=== PATIENT | male | born 1975 | race Caucasian/White ===

== ENCOUNTER 2019-12-12 08:32 | Observation (INO) | payer OTHER, SELFPAY ==
[2019-12-12] VITALS (9 sets, daily range): BP systolic 118–161; BP diastolic 69–95; PULSE 80–128; RESP 14–18; TEMP 36.3–36.6; O2SAT 93–98; BMI 28.0
--- NOTE | ~2019-12-12 | XR_ITS ---
XR chest 1V portable DATE: 12/12/2019 09:10 INDICATION: Midsternal acute chest pain TECHNIQUE: Portable upright AP chest on 12/12/2019 at 0913 hours COMPARISON: 02/15/2019 PA and lateral chest FINDINGS: Normal heart size. No hilar or mediastinal enlargement. No pulmonary infiltrate or consolid ation, pleural effusion or pulmonary vascular congestion or pneumothorax. IMPRESSION: No active cardiopulmonary disease Reviewed, dictated and finalized at location A.
--- NOTE | ~2019-12-12 | CT_ITS ---
EXAMINATION: CTA chest PE protocol DATE: 12/12/2019 10:28 INDICATION: Midsternal chest pain. Elevated d-dimer. TECHNIQUE: Computed tomography angiography (CTA) of the chest was performed with 100 mL Omnipaque-350 intravenous contrast timed to evaluate the pulmonary arteries. Coronal maximum intensity projection 3D-reconstructions were created by the technologist. Automated exposure control and iterative reconst ruction technique were employed. Exam dose: 445.35 mGy-cm total exam DLP. COMPARISON: 12/12/2019 portable AP chest FINDINGS: There is diagnostic contrast enhancement of the pulmonary arteries and no evidence of pulmo nary embolism. No thoracic aortic aneurysm or dissection. Heart size is within normal range. There are prominent coronary artery calcifications. No pericardial or pleural effusion. There are scattered pulmonary blebs, primarily in the apical areas and evidence of mild emphysema. No pulmonary infiltrate or consolidation or pulmonary mass lesion is evident. Hepatic steatosis. The included portions of the adrenal glands are normal. IMPRESSION: No evidence of pulmonary embolism Mild emphysematous changes Hepatic steatosis Reviewed, dictated and finalized at Location [facility]. Reviewed, dictated and finalized at location A.
--- NOTE | ~2019-12-12 | US_ITS ---
EXAMINATION: US venous doppler [facility] DATE: 12/12/2019 14:13 INDICATION: Chest pain. Elevated d-dimer. TECHNIQUE: Grayscale ultrasound images without and with compression and Doppler ultrasound images of the bilateral lower extremity veins were obtained. COMPARISON: None. FINDINGS: The visualized portions of right common femoral vein, profunda (deep) femoral vein, femoral vein, pop liteal vein, posterior tibial veins, peroneal veins, gastrocnemius vein and greater saphenous vein ou tflow are patent. The visualized portions of left common femoral vein, profunda femoral vein, femoral vein, popliteal v ein, posterior tibial veins, peroneal veins, gastrocnemius vein and greater saphenous vein outflow ar e patent. IMPRESSION: 1. No deep venous thrombosis in either lower limb. Reviewed, dictated and finalized at location A.
--- NOTE | ~2019-12-12 | CT_ITS ---
EXAMINATION: CT brain wo con DATE: 12/12/2019 10:29 INDICATION: Fall on face 5 days ago. Bilateral facial bruising. TECHNIQUE: Computed tomography (CT) of the head was performed without intravenous contrast. The mA wa s adjusted according to patient size. Iterative reconstruction technique was employed. Exam dose: 60 5.33 mGy-cm total exam DLP. COMPARISON: 11/16/2018 MRI brain FINDINGS: There is nasal bone fracture partially included in the lowermost images, not completely lester luated. The fractures insufficiently included in examination to evaluate the extent and the approxima te age. Patchy opacification of the ethmoid air cells. Mild mucoperiosteal thickening of the right frontal si nus and both sphenoid sinuses. No fracture or bone destruction of the cranial vault. No intracranial mass lesion or hemorrhage or evidence of cerebrovascular accident. No midline shift o r mass effect. No subdural or epidural hematoma. IMPRESSION: Age indeterminate nasal bone fracture No significant intracranial abnormality or skull fracture Reviewed, dictated and finalized at Location [facility]. Reviewed, dictated and finalized at location A.
--- NOTE | 2019-12-12 08:40 | ECG_ITS ---
Measurements Intervals [place] Rate: 97 P: 64 MO: 139 QRS: 45 QRSD: 92 T: 90 QT: 346 QTc: 441 Interpretive Statements SINUS RHYTHM BORDERLINE ST-T WAVE ABNORMALITY- HIGH LATERAL LEADS BORDERLINE ECG Electronically Signed On 12-12-2019 8:58:41 CDT by Micheal Bone D.O.
--- NOTE | 2019-12-12 08:54 | ED.CHESTPAIN ---
HPI - Chest Pain General Chief Complaint: Chest Pain Stated Complaint: CHEST PAIN Source: patient Mode of arrival: ambulatory Limitations: clinical condition History of Present Illness HPI narrative: Fransisco méndez is a 44-year-old who complains of a sharp lower midsternal pain which started at 7:00 a.m. rated #7/10. It is currently /. It is non-radiating, not associated with nausea, vomiting or sweating. He states when it first started he felt short of breath for about 5 minutes but not since. He denies burping/acidic taste in his mouth He has a past history of stent placement at [address] espinoza about 4 weeks ago, was taken off Plavix. He now takes aspirin daily 81 mg. He has a history of depression which was recently worse. He feels this triggered his drinking. He has been off his mirtazapine and rosuvastatin for a while. He continues to take his lisinopril and metoprolol daily. He has a history of alcohol dependence. He was sober x 8 months until a week ago. One week ago he fell forward landing on his face. He thinks he may have had LOC. He denies head or neck pain since then. Pt is interested in being admitted to a detox facility. Related Data Home Medications Medication Instructions Recorded Confirmed mirtazapine 30 mg tablet 30 mg PO DAILY 05/24/19 12/12/19 multivitamin 1 tablet PO DAILY 05/24/19 12/12/19 Allergies Allergy/AdvReac Type Severity Reaction Status Date / Time bupropion Allergy Mild RASH Verified 05/31/19 15:05 aspirin Allergy Unknown Unknown Verified 05/31/19 15:05 codeine Allergy Unknown Unknown Verified 05/31/19 15:05 Penicillins Allergy Unknown unknown Verified 05/31/19 15:05 Review of Systems Constitutional: Constitutional: Denies chills and Denies fever(s) ENT: Reports system reviewed and no additional complaints, except as documented Cardiovascular: Cardiovascular: Reports no additional cardiovascular complaints and Denies radiating jaw, neck or arm pain Respiratory: Respiratory: Reports no additional respiratory complaints Gastrointestinal: Gastrointestinal: Denies abdominal pain and Denies diarrhea Comments: no melena Genitourinary: Genitourinary: Denies oliguria Musculoskeletal: Musculoskeletal: Denies arthralgias and Denies joint swelling Integumentary/Breasts: Skin/Breast: Denies rash Neurologic: Reports system reviewed and no additional complaints, except as documented [facility] Past Medical History Medical History (Updated 12/12/19 @ 13:24 by JOB Kim) CAD in [place] artery Chest pain at rest Depression Dyslipidemia Surgical History Surgical History (Updated 05/24/19 @ 11:00 by Amaya Koo [facility]) History of hernia repair History of knee surgery History of tonsillectomy Family History Family History (Updated 08/22/15 @ 13:15 by DOCTOR UNKNOWN) Father Cerebrovascular accident Acute myocardial infarction Mother Family history of chronic obstructive pulmonary disease Social History Social History Smoking packs per day: 2 Smoking cigarettes per day: 40.0 Years smoked: 25 Smoking pack-years: 50.00 Smoking status: Current every day smoker Tobacco type: cigarettes Second hand tobacco smoke exposure: Yes Smoking end date: 05/30/12 Alcohol intake: current Drinks per week: 14 Substance use: never Gender identity (if verbalized by the patient): Male Spiritual care concerns: No Exam Const: Orientation/consciousness: patient oriented x3 HENMT: Head: normal to inspection Mouth: Yes Normal oral and palatal mucosa present Eyes: Other: no scleral icterus Neck: Neck: lymphadenopathy noted Other: No JVD Chest: Chest palpation & inspection: normal inspection of the chest and no tenderness Resp: Effort & Inspection: normal respiratory effort Auscultation: clear to auscultation bilaterally, no rales and no wheezes Cardi
[2019-12-12 09:09] LABS: Basophils Absolute Auto 0.12 K/mm3 (0.00-0.10); Basophils Percent Auto 1.6 % (0.0-1.0); Eosinophils Absolute Auto 0.15 K/mm3 (0.02-0.50); Hematocrit 48.3 % (40.0-54.0); Hemoglobin 16.5 g/dL (14.0-18.0); Immature Granulocyte Absolute 0.02 K/mm3 (0.00-0.00); Immature Granulocyte Percent A 0.3 % (0.0-0.0); Lymphocytes Absolute Auto 1.42 K/mm3 (1.10-4.50); Lymphocytes Percent Auto 18.9 % (18.0-42.0); Mean Corpuscular HGB Conc 34.2 g/dL (32.0-36.0); Mean Corpuscular Hemoglobin 31.3 pg (27.0-31.0); Mean Corpuscular Volume 91.7 fL (78.0-102.0); Mean Platelet Volume 8.6 fl (8.7-11.0); Monocytes Absolute Auto 0.33 K/mm3 (0.10-0.90); Monocytes Percent Auto 4.4 % (2.0-11.0); Neutrophils Absolute Auto 5.5 K/mm3 (1.7-7.2); Neutrophils Percent Auto 72.8 % (50.0-70.0); Platelet Count Result 166 K/mm3 (150-420); Red Blood Count 5.27 M/mm3 (4.70-6.10); White Blood Count 7.5 K/mm3 (4.8-10.8)
[2019-12-12] MEDS: ASPIRIN 81 MG CHEWABLE TABLET 324 MG PO (09:18)
[2019-12-12 09:28] LABS: Alanine Aminotransferase 381 U/L (16-63); Albumin Level 4.1 g/dL (3.4-5.0); Alkaline Phosphatase 83 U/L (46-116); Anion Gap 15.6 mmol/L (7-16); Aspartate Amino Transferase 362 U/L (15-37); Bilirubin,Total 0.7 mg/dL (0.00-1.00); Blood Urea Nitrogen 6 mg/dL (7-18); Calcium 8.9 mg/dL (8.5-10.1); Carbon Dioxide 26 mmol/L (21-32); Chloride 98 mmol/L (98-108); Estimated CRCL calculation 98 ml/min; Estimated Glomerular Filt Rate > 60; Glucose 96 mg/dL (70-99); Lipase 194 U/L (73-393); Osmolality Calculated 279 mOsm/kg (285-295); Potassium 3.6 mmol/L (3.5-5.1); Sodium 136 mmol/L (136-145)
[2019-12-12 09:29] LABS: Troponin I < 0.02 ng/mL (0.00-0.056)
[2019-12-12 09:31] LABS: INR 0.9; Partial Thromboplastin Time 27.2 SEC (22.3-31.6); Prothrombin Time 9.6 Seconds (9.64-11.0)
[2019-12-12 09:34] LABS: D Dimer 14.15 mg/L (0.19-0.50)
--- NOTE | 2019-12-12 10:00 | PC.NURSE ---
Pt. reports to ERP and staff that he has began drinking again and having tremors. Pt. and requesting help and states he has had inpt. for rehab c [facility] in past. Pt. requesting call and transfer to [facility] for care and detox. Advised pt. and about r/o for other medical conditions and then may call for rehab. Pt. agreeable to POC.
[2019-12-12] MEDS: LORazepam 0.5 MG TABLET 1 MG (10:49)
--- NOTE | 2019-12-12 11:14 | PC.NURSE ---
Report to Juan M Shoemaker
--- NOTE | 2019-12-12 11:29 | PC.NURSE ---
admission in progress. room assignment of 201 obtained. report given to ASSISTANT STATISTICIAN per ERP.
--- NOTE | 2019-12-12 12:17 | PC.NURSE ---
Admitted for observation status for rule out [place], no chest pain at this time, no sob, just having some anxiety, hx of fall 5 days ago and has brusing to left and right eye, hx of fx nose, current a/ox3, states unsteady but only when drinking alcohol, oriented to room and hospital environment
--- NOTE | 2019-12-12 12:48 | PC.NURSE ---
Hospitalist in to see patient, awaiting orders
--- NOTE | 2019-12-12 13:03 | PM.IMHP ---
H&P: HPI History of Present Illness Chief complaint: CHEST PAIN <JOB Kim - Last Filed: 12/12/19 13:25> Narrative: Bradly Moody is a 44 year old male that presented to [facility] ED with complaints of chest pains. Patient has a past medical history of CAD with stent placement, chest pain at rest, dyslipidemia, hypertension, alcohol abuse and depression. Patient noted that after 8 months sobriety, patient supervisor picking crew beverage approximately 5 weeks and drinking constantly. patient noted that he has a history of depression which triggered history. he has also been noncompliant with his medications due to his abuse. patient noted that in the past he has had heart attack and the feeling that he felt this morning was summoned to that. patient will to without chest pain. Vital Signs 125/80, 80, 14, 97, 97% air patient D-dimer was elevated at 14.5 his CTA was negative for PE chest x-ray negative CT of the head also negative his liver enzymes were elevated AST 362 ALT 381 lipase was normal limit 194 his troponin was 0.02, EKG sinus rhythm. At this time patient denies SOB, CP, palpitation, extremity numbness, lightheadness, dizziness, constipation, diarrhea, chills or fever. <JOB Kim - Last Filed: 12/12/19 13:25> Review of Systems Review of Systems: Narrative: CONSTITUTIONAL :No weight loss, fever, chills, weakness or fatigue. does complain of depression HEENT: Eyes: No diplopia or blurred vision. ENT: No earache, sore throat or runny nose. CARDIOVASCULAR: complained of chest pain burning in his epigastric area. RESPIRATORY: No cough, shortness of breath, PND or orthopnea. GASTROINTESTINAL: No nausea, vomiting or diarrhea. GENITOURINARY: No dysuria, frequency or urgency. MUSCULOSKELETAL: No muscle, back pain, joint pain or stiffness. SKIN: No change in skin, hair or nails. NEUROLOGIC: No paresthesias, fasciculations, seizures or weakness. PSYCHIATRIC: No disorder of thought or mood. ENDOCRINE: No heat or cold intolerance, polyuria or polydipsia. HEMATOLOGICAL: No easy bruising or bleeding. <JOB Kim - Last Filed: 12/12/19 13:25> PENDING SALE TO [facility] Past Medical History Medical History: Medical History (Updated 12/12/19 @ 13:24 by JOB Kim) CAD in [place] artery Chest pain at rest Depression Dyslipidemia <JOB Kim - Last Filed: 12/12/19 13:25> Surgical History Surgical History: Surgical History (Updated 05/24/19 @ 11:00 by Amaya Koo CMA) History of hernia repair History of knee surgery History of tonsillectomy <JOB Kim - Last Filed: 12/12/19 13:25> Family History Family History: Family History (Updated 08/22/15 @ 13:15 by DOCTOR UNKNOWN) Father Cerebrovascular accident Acute myocardial infarction Mother Family history of chronic obstructive pulmonary disease <JOB Kim - Last Filed: 12/12/19 13:25> Social History Social History: Social History Smoking packs per day: 2 Smoking cigarettes per day: 40.0 Years smoked: 25 Smoking pack-years: 50.00 Smoking status: Current every day smoker Tobacco type: cigarettes Second hand tobacco smoke exposure: Yes Smoking end date: 05/30/12 Alcohol intake: current Drinks per week: 14 Substance use: never Gender identity (if verbalized by the patient): Male Spiritual care concerns: No <JOB Kim - Last Filed: 12/12/19 13:25> Meds Home Medications and Allergies Home medications: Home Medications Medication Instructions Recorded Confirmed Type mirtazapine 30 mg tablet 30 mg PO DAILY 05/24/19 12/12/19 History multivitamin 1 tablet PO DAILY 05/24/19 12/12/19 History isosorbide mononitrate 30 mg 30 mg PO DAILY #30 tablet 05/31/19 12/12/19 Rx tablet,extended release 24 hr lisinopril 5 mg tablet 5 mg PO DAILY #30 tablet 05/31/19 12/12/19
[2019-12-12 13:04] LABS: Magnesium 1.9 mg/dL (1.8-2.4)
[2019-12-12 13:08] LABS: Amphetamine Screen Urine Negative (Negative); Barbiturate Screen Urine Negative (Negative); Benzodiazepines Screen Urine Negative (Negative); Cannabinoid Screen Urine Negative (Negative); Cocaine Screen Urine Negative (Negative); Methadone Screen Urine Negative (Negative); Opiate Screen Urine Negative (Negative); Phencyclidine Screen Urine Negative (Negative)
[2019-12-12] MEDS: NICOTINE (*PBKC) 21 MG PATCH 1 PATCH TRANSDERM (13:34)
--- NOTE | 2019-12-12 13:38 | PC.NURSE ---
Refusing GI cocktail at this time, states pain free at this time, if pain returns will try it then, hospitalist notitified
--- NOTE | 2019-12-12 14:39 | PC.NURSE ---
No pain at this time, resting in bed
[2019-12-12] MEDS: ENOXAPARIN 40 MG/0.4 ML SYRINGE SUB-Q (15:38)
[2019-12-12 15:54] LABS: Troponin I < 0.02 ng/mL (0.00-0.056)
--- NOTE | 2019-12-12 18:32 | PC.NURSE ---
pt has no c/o chest pain but requests tramadol at bedtime, sinus tach on tele monitor
--- NOTE | 2019-12-12 20:19 | PC.NURSE ---
call out to dr to ask about possibly adding librium, dr to review chart and add orders as necessary
[2019-12-12] MEDS: MIRTAZAPINE 15 MG TABLET 30 MG PO (20:30)
[2019-12-12] MEDS: PANTOPRAZOLE 40 MG TABLET PO (20:30)
[2019-12-12] MEDS: traZODone HCL 50 MG TABLET PO (20:31)
--- NOTE | 2019-12-12 20:35 | PC.NURSE ---
pt has no chest pain at this time, states only complaint is the tremors, given ativan prn for tremors, pt sitting up in bed with laptop doing taxes
--- NOTE | 2019-12-12 21:52 | PC.NURSE ---
pt resting in bed, heart rate has come down to 100, no evidence of chest pain
[2019-12-13] VITALS (10 sets, daily range): BP systolic 115–143; BP diastolic 64–87; PULSE 71–90; RESP 18–20; TEMP 36.2–36.7; O2SAT 93–96
[2019-12-13 05:32] LABS: Hematocrit 46.4 % (40.0-54.0); Hemoglobin 15.5 g/dL (14.0-18.0); Immature Platelet Fraction Pct 2.7 % (1.0-7.0); Mean Corpuscular HGB Conc 33.4 g/dL (32.0-36.0); Mean Corpuscular Hemoglobin 31.3 pg (27.0-31.0); Mean Corpuscular Volume 93.7 fL (78.0-102.0); Mean Platelet Volume 9.4 fl (8.7-11.0); Platelet Count Result 146 K/mm3 (150-420); Red Blood Count 4.95 M/mm3 (4.70-6.10)
[2019-12-13 05:47] LABS: Alanine Aminotransferase 298 U/L (16-63); Albumin Level 3.5 g/dL (3.4-5.0); Alkaline Phosphatase 77 U/L (46-116); Anion Gap 8.6 mmol/L (7-16); Aspartate Amino Transferase 205 U/L (15-37); Bilirubin,Total 1.1 mg/dL (0.00-1.00); Blood Urea Nitrogen 10 mg/dL (7-18); CRP 0.9 mg/dL (0.0-0.9); Calcium 8.9 mg/dL (8.5-10.1); Carbon Dioxide 31 mmol/L (21-32); Chloride 100 mmol/L (98-108); Estimated CRCL calculation 82 ml/min; Estimated Glomerular Filt Rate > 60; Glucose 91 mg/dL (70-99); Lipase 154 U/L (73-393); Magnesium 1.7 mg/dL (1.8-2.4); Osmolality Calculated 281 mOsm/kg (285-295); Potassium 3.6 mmol/L (3.5-5.1); Sodium 136 mmol/L (136-145); Total Protein 6.3 g/dL (6.4-8.2)
[2019-12-13] MEDS: FOLIC ACID 0.4 MG TABLET PO (09:43)
[2019-12-13] MEDS: NICOTINE (*PBKC) 21 MG PATCH 1 PATCH TRANSDERM (09:43)
[2019-12-13] MEDS: METOPROLOL SUCCINATE EXT REL 50 MG TABCR PO (09:44)
[2019-12-13] MEDS: ISOSORBIDE MONONITRATE 30 MG TAB.ER.24H PO (09:44)
[2019-12-13] MEDS: PANTOPRAZOLE 40 MG TABLET PO (09:44)
[2019-12-13] MEDS: MULTIVITAMINS THERAPEUTIC TAB (*BKC) 1 TABLET PO (09:44)
[2019-12-13] MEDS: ASPIRIN 325 MG ENTERIC TABLET PO (09:44)
[2019-12-13] MEDS: ROSUVASTATIN 10 MG TABLET 40 MG PO (09:44)
[2019-12-13] MEDS: lisinopriL 5 MG TABLET PO (09:45)
[2019-12-13] MEDS: THIAMINE HCL 100 MG TABLET 50 MG PO (09:45)
--- NOTE | 2019-12-13 11:08 | P.DS_ITS ---
DS: Admitting Diagnosis Admitting Diagnosis Admitting Diagnosis: Chest pain, unspecified DS: Discharge Diagnosis Discharge Diagnosis (1) Chest pain: Qualifiers: Chest pain type: unspecified Qualified Code(s): R07.9 - Chest pain, unspecified Code(s): R07.9 - Chest pain, unspecified Status: Acute Assessment and Plan: ? CXR unremarkable ? EKG sinus rhythm ? Trop negative ? Dimer elevated 14.5 ? CTA negative for ? DVT Doppler Negative ? Continue tele, vs as ordered ? Continue nitrates, ASA, oxygen * continue telemetry * started PPI * Mag level within normal limits * follow-up with primary care physician (2) Alcohol abuse: Code(s): F10.10 - Alcohol abuse, uncomplicated Status: Acute Assessment and Plan: * case coordination consulted * GI cocktail given * added Thiamine and folic acid to regiment * drug screen negative (3) Contusion of face: Qualifiers: Encounter type: initial encounter Qualified Code(s): S00.83XA - Contusion of other part of head, initial encounter Code(s): S00.83XA - Contusion of other part of head, initial encounter Status: Acute Assessment and Plan: * post fall after intoxication * case coordination consulted for abuse (4) Smoking: Code(s): F17.200 - Nicotine dependence, unspecified, uncomplicated Status: Acute Assessment and Plan: * order nicotine (5) Hypertension: Code(s): I10 - Essential (primary) hypertension Status: Acute Assessment and Plan: * patient has been noncompliant with blood pressure medication due to alcohol abuse * blood pressure stable * continue isosobide 30 mg daily, lisinopril 5 mg daily, metoprolol 50 mg daily (6) Dyslipidemia: Code(s): E78.5 - Hyperlipidemia, unspecified Status: Acute Assessment and Plan: * continue statins (7) CAD in [place] artery: Code(s): I25.10 - Atherosclerotic heart disease of [place] coronary artery without angina pectoris Status: Acute Assessment and Plan: * history of CAD with stent * continue aspirin * follow-up with Dr. Bone post discharge (8) Depression: Code(s): F32.9 - Major depressive disorder, single episode, unspecified Status: Acute Assessment and Plan: * continue mirtazapine (9) D-dimer, elevated: Code(s): R79.89 - Other specified abnormal findings of blood chemistry Status: Acute Assessment and Plan: * elevated D-dimer 14.15 * CTA negative * lower extremity Dopplers negative (10) Liver enzyme elevation: Code(s): R74.8 - Abnormal levels of other serum enzymes Status: Acute Assessment and Plan: * history of alcohol abuse * AST 362 ALT 381 improving AST one oh five ALT * educated on alcohol cessation * avoid hepatoxic agent DS: Summary Time Spent with Patient Time attestation: Total time spent providing and/or coordinating discharge services:60 Exam Narrative: Exam Narrative: General: A well-developed, well-nourished male sitting up in bed no acute distress. HEENT: Normocephalic, atraumatic. PERRL, EOMI. Sclerae anicteric. Oral mucosa moist. Oropharynx clear. Neck: Supple. Respiratory: Lungs are clear to auscultation bilaterally. Cardiovascular: Regular rate and rhythm with S1-S2. Gastrointestinal: Abdomen is soft, nontender, and nondistended with
--- NOTE | 2019-12-13 11:08 | PM.DS ---
DS: Admitting Diagnosis Admitting Diagnosis Admitting Diagnosis: Chest pain, unspecified DS: Discharge Diagnosis Discharge Diagnosis (1) Chest pain: Qualifiers: Chest pain type: unspecified Qualified Code(s): R07.9 - Chest pain, unspecified Code(s): R07.9 - Chest pain, unspecified Status: Acute Assessment and Plan: ? CXR unremarkable ? EKG sinus rhythm ? Trop negative ? Dimer elevated 14.5 ? CTA negative for ? DVT Doppler Negative ? Continue tele, vs as ordered ? Continue nitrates, ASA, oxygen continue telemetry started PPI Mag level within normal limits follow-up with primary care physician (2) Alcohol abuse: Code(s): F10.10 - Alcohol abuse, uncomplicated Status: Acute Assessment and Plan: case coordination consulted GI cocktail given added Thiamine and folic acid to regiment drug screen negative (3) Contusion of face: Qualifiers: Encounter type: initial encounter Qualified Code(s): S00.83XA - Contusion of other part of head, initial encounter Code(s): S00.83XA - Contusion of other part of head, initial encounter Status: Acute Assessment and Plan: post fall after intoxication case coordination consulted for abuse (4) Smoking: Code(s): F17.200 - Nicotine dependence, unspecified, uncomplicated Status: Acute Assessment and Plan: order nicotine (5) Hypertension: Code(s): I10 - Essential (primary) hypertension Status: Acute Assessment and Plan: patient has been noncompliant with blood pressure medication due to alcohol abuse blood pressure stable continue isosobide 30 mg daily, lisinopril 5 mg daily, metoprolol 50 mg daily (6) Dyslipidemia: Code(s): E78.5 - Hyperlipidemia, unspecified Status: Acute Assessment and Plan: continue statins (7) CAD in [place] artery: Code(s): I25.10 - Atherosclerotic heart disease of [place] coronary artery without angina pectoris Status: Acute Assessment and Plan: history of CAD with stent continue aspirin follow-up with Dr. Bone post discharge (8) Depression: Code(s): F32.9 - Major depressive disorder, single episode, unspecified Status: Acute Assessment and Plan: continue mirtazapine (9) D-dimer, elevated: Code(s): R79.89 - Other specified abnormal findings of blood chemistry Status: Acute Assessment and Plan: elevated D-dimer 14.15 CTA negative lower extremity Dopplers negative (10) Liver enzyme elevation: Code(s): R74.8 - Abnormal levels of other serum enzymes Status: Acute Assessment and Plan: history of alcohol abuse AST 362 ALT 381 improving AST one oh five ALT educated on alcohol cessation avoid hepatoxic agent DS: Summary Time Spent with Patient Time attestation: Total time spent providing and/or coordinating discharge services:60 Exam Narrative: Exam Narrative: General: A well-developed, well-nourished male sitting up in bed no acute distress. HEENT: Normocephalic, atraumatic. PERRL, EOMI. Sclerae anicteric. Oral mucosa moist. Oropharynx clear. Neck: Supple. Respiratory: Lungs are clear to auscultation bilaterally. Cardiovascular: Regular rate and rhythm with S1-S2. Gastrointestinal: Abdomen is soft, nontender, and nondistended with positive bowel sounds. No organomegaly. Skin: ecchymosis bilateral eyes Extremities: No cyanosis, clubbing, or edema. Radial and pedal pulses intact. Neurological: Alert. Cranial nerves 2-12 are grossly intact. No gross focal deficits to casual conversation. Psychiatric: Pleasant and cooperative with normal mood and affect. Judgment and insight intact. CONSTITUTIONAL :No weight loss, fever, chills, weakness or fatigue.: HEENT: Eyes: No diplopia or blurred vision. ENT: No earache, sore throat or runny nose. CARDIOVASCULAR
--- NOTE | 2019-12-13 19:17 | PC.NURSE ---
Patient discharged to home at 1916. Patient ambulated off floor accompanied by technical writer. He left the facility in a private vehicle.
== END 2019-12-13 19:17 | disposition home or self-care (01) ==
LOC: CHSED 08:37 → CHS2ND 11:47
PROVIDERS: Nurse Practitioner; Admitting Provider Family Medicine; Emergency Provider Family Medicine; PCP Family Medicine; Visit Provider Family Medicine
DX: R07.89 Other chest pain (principal); F10.20 Alcohol dependence, uncomplicated; I25.10 Atherosclerotic heart disease of native coronary artery without angina pectoris; S02.2XXA Fracture of nasal bones, initial encounter for closed fracture; S00.83XA Contusion of other part of head, initial encounter; W19.XXXA Unspecified fall, initial encounter; I10 Essential (primary) hypertension; F32.9 Major depressive disorder, single episode, unspecified; R74.8 Abnormal levels of other serum enzymes; E78.5 Hyperlipidemia, unspecified; F17.210 Nicotine dependence, cigarettes, uncomplicated
CPT/HCPCS: 36415; 70450; 71045; 71275; 80053; 80307; 83690; 83735; 84484; 85025; 85027; 85055; 85380; 85610; 85730; 86140; 93005; 93970; 96374; 99284; 99285; A9270; G0378; J1650; J2060; Q9965